=== PATIENT | female | born 1980 | race Caucasian/White ===

== ENCOUNTER → 2016-08-03 | Outpatient (CLI) | payer BC | LOC: MW.CHIM 16:31 | PROVIDERS: ATTEND Internal Medicine | DX: L73.2 Hidradenitis suppurativa (principal) | CPT/HCPCS: 36415; 85025 ==

== ENCOUNTER 2017-04-26 15:33 | Emergency (ER) | payer BC, OTHER ==
[2017-04-26 16:18] VITALS: BP 145/95
[2017-04-26] MEDS ORDERED: Ondansetron 4 MG/2 ML SDV IVPUSH ONE (16:35)
[2017-04-26] MEDS ORDERED: Sodium Chloride 0.9% 1,000 ML IV ONE (16:35)
[2017-04-26] MEDS ORDERED: Ketorolac 30 MG/ML SDV IVPUSH ONE (16:35)
[2017-04-26] MEDS ORDERED: LORazepam 2 MG/ML MDV IVPUSH ONE (16:35)
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
== END 2017-04-26 18:58 | disposition home or self-care (01) ==
LOC: MW.ED 15:33
DX: G43.909 Migraine, unspecified, not intractable, without status migrainosus (principal); I10 Essential (primary) hypertension; F17.210 Nicotine dependence, cigarettes, uncomplicated; Z79.899 Other long term (current) drug therapy
CPT/HCPCS: 96361; 96374; 96375; 99284; J1885; J2060; J7040

== ENCOUNTER 2017-12-14 15:58 | Emergency (ER) | payer OTHER ==
[2017-12-14] MEDS ORDERED: Albuterol/Ipratropium 3.0-0.5 MG/3 ML Neb Soln NEB ONE (16:47)
[2017-12-14] MEDS ORDERED: predniSONE 20 MG Tab PO ONE (16:47)
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
[2017-12-14 17:41] VITALS: BP 121/95
== END 2017-12-14 17:37 | disposition home or self-care (01) ==
LOC: MW.ED 15:58
DX: J45.20 Mild intermittent asthma, uncomplicated (principal); I10 Essential (primary) hypertension; Z79.899 Other long term (current) drug therapy
CPT/HCPCS: 93005; 94640; 99283; A9270; J7620-GY

== ENCOUNTER 2018-10-10 19:55 | Emergency (ER) | payer BC, OTHER ==
[2018-10-10] MEDS ORDERED: LORazepam 1 MG Tab PO ONE (20:21)
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
[2018-10-10 21:22] VITALS: BP 157/105
== END 2018-10-10 21:14 | disposition home or self-care (01) ==
LOC: MW.ED 19:55
DX: F41.1 Generalized anxiety disorder (principal); F17.210 Nicotine dependence, cigarettes, uncomplicated; Z79.899 Other long term (current) drug therapy
CPT/HCPCS: 93005; 99284-25

== ENCOUNTER 2019-11-14 17:45 | Emergency (ER) | payer BC, MEDICAID ==
[2019-11-14] MEDS ORDERED: diphenhydrAMINE 50 MG/ML SDV IVPUSH ONE (19:01)
[2019-11-14] MEDS ORDERED: Ketorolac 30 MG/ML SDV IVPUSH ONE (19:01)
[2019-11-14] MEDS ORDERED: Sodium Chloride 0.9% 1,000 ML IV ONE (19:01)
[2019-11-14] MEDS ORDERED: Metoclopramide 10 MG/2 ML SDV IV ONE (19:01)
[2019-11-14] MEDS ORDERED: Ondansetron 4 MG/2 ML SDV IVPUSH ONE (19:01)
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
[2019-11-14 23:16] VITALS: BP 155/97; PULSE 76
== END 2019-11-14 21:21 | disposition home or self-care (01) ==
LOC: MW.ED 17:45
DX: G43.909 Migraine, unspecified, not intractable, without status migrainosus (principal); R11.2 Nausea with vomiting, unspecified; I10 Essential (primary) hypertension; Z79.899 Other long term (current) drug therapy
CPT/HCPCS: 96361; 96374; 96375; 99283; J1885; J2405; J7030; 99282

== ENCOUNTER 2020-03-26 01:44 | Emergency (ER) | payer MEDICAID ==
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
[2020-03-26] MEDS ORDERED: Benzocaine 20% Topical Spray UD MUCMEM ONE ×2 (02:40→02:56)
[2020-03-26] MEDS ORDERED: Acetaminophen/oxyCODONE 325-5 MG Tab PO ONE (02:40)
[2020-03-26 03:12] VITALS: BP 152/100; PULSE 92
== END 2020-03-26 03:11 | disposition home or self-care (01) ==
LOC: MW.ED 01:44
DX: K08.89 Other specified disorders of teeth and supporting structures (principal); I10 Essential (primary) hypertension; Z88.8 Allergy status to other drugs, medicaments and biological substances; Z79.899 Other long term (current) drug therapy
CPT/HCPCS: 99282; A9270

== ENCOUNTER 2020-03-26 16:41 | Emergency (ER) | payer MEDICAID ==
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
[2020-03-26] MEDS ORDERED: Ketorolac 60 MG/2 ML SDV IM ONE (17:21)
[2020-03-26] MEDS ORDERED: Lidocaine 2% Viscous Solution 15 ML Cup PO ONE (17:22)
[2020-03-26] MEDS ORDERED: Benzocaine 20% Topical Spray UD MUCMEM ONE (17:22)
[2020-03-26] MEDS ORDERED: Lidocaine 2% Viscous Solution 15 ML Cup ONE (17:24)
[2020-03-26] MEDS ORDERED: Benzocaine 20% Topical Spray UD ONE (17:24)
[2020-03-26 17:38] VITALS: BP 180/98; PULSE 89
== END 2020-03-26 17:48 | disposition home or self-care (01) ==
LOC: MW.ED 16:41
DX: K04.7 Periapical abscess without sinus (principal); I10 Essential (primary) hypertension; Z88.8 Allergy status to other drugs, medicaments and biological substances; Z79.899 Other long term (current) drug therapy
CPT/HCPCS: 99282; A9270

== ENCOUNTER 2020-12-10 09:14 | Day surgery (SDC) | payer OTHER, MEDICAID ==
[2020-12-08 12:17] LABS: CARBON DIOXIDE,CO2 28.5 mmol/L (21.0-32.0); POTASSIUM,K 4.6 mmol/L (3.5-5.1)
[~2020-12-10 09:14] MED LIST: Lactated Ringers 1,000 ML IV SCH; Sodium Chloride 0.9% 10 ML SDV IV PRN; Sodium Chloride 0.9% 10 ML Syringe FLUSH PRN; Sodium Chloride 0.9% 2.5 ML Syringe FLUSH PRN; ceFAZolin 2 GM in Premix Bag 1 BAG IV ONE
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
[2020-12-10] MEDS ORDERED: Fluorescein 5 ML Vial ONE (09:44)
[2020-12-10] MEDS ORDERED: Propofol 200 MG/20 ML SDV ONE (10:01)
[2020-12-10] MEDS ORDERED: fentaNYL 100 MCG/2 ML SDV ONE (10:01)
[2020-12-10] MEDS ORDERED: fentaNYL 250 MCG/5 ML SDV ONE ×2 (10:01→10:43)
[2020-12-10] MEDS ORDERED: Rocuronium Bromide 50 MG/5 ML Syringe ONE (11:05)
[2020-12-10] MEDS ORDERED: Glycopyrrolate 0.2 MG/ML SDV ONE (11:05)
[2020-12-10] MEDS ORDERED: ePHEDrine 50 MG/ML SDV ONE (11:05)
[2020-12-10] MEDS ORDERED: Ondansetron 4 MG/2 ML SDV ONE (11:05)
[2020-12-10] MEDS ORDERED: Dexamethasone 4 MG/ML 5 ML MDV ONE (11:05)
[2020-12-10] MEDS ORDERED: Metoprolol Tartrate 5 MG/5 ML SDV ONE (11:05)
[2020-12-10] MEDS ORDERED: Promethazine 25 MG/ML SDV IM PRN (11:30)
[2020-12-10] MEDS ORDERED: Ketorolac 30 MG/ML SDV IVPUSH PRN (11:30)
[2020-12-10] MEDS ORDERED: Ketorolac 30 MG/ML SDV IVPUSH ONE (11:30)
[2020-12-10] MEDS ORDERED: Morphine 4 MG/ML Syringe IVPUSH PRN (11:30)
[2020-12-10] MEDS ORDERED: Acetaminophen/oxyCODONE 325-5 MG Tab PO PRN ×2 (11:30)
[2020-12-10] MEDS ORDERED: Ondansetron 4 MG/2 ML SDV IVPUSH PRN ×2 (11:30→11:54)
--- NOTE | 2020-12-10 11:33 | PCM.OPNOTE ---
- General Post-Op/Procedure Note Date of Surgery/Procedure: 12/10/20 Operative Procedure(s): TVH, TVT and cystoscopy. Post-Op Diagnosis: Same Anesthesia Technique: General ET Tube Primary Surgeon: Dale Gamez EBL in mLs: 150 Complications: None Condition: Good
--- NOTE | 2020-12-10 11:52 | PCM.POSTAN ---
POST ANESTHESIA ASSESSMENT - MENTAL STATUS Mental Status: Alert - VITAL SIGNS Vital Signs: Last Vital Signs Temp 36.2 C 12/10/20 09:22 Pulse 105 H 12/10/20 11:48 Resp 10 L 12/10/20 11:48 BP 151/101 H 12/10/20 11:48 Pulse Ox 100 12/10/20 11:48 - RESPIRATORY Respiratory Status: Respiratory Rate WNL, Airway Patent, O2 Saturation Stable, Supplemental Oxygen - CARDIOVASCULAR CV Status: Pulse Rate WNL - GASTROINTESTINAL GI Status: No Symptoms - POST OP HYDRATION Hydration Status: Adequate & Stable (Patient denies pain or nausea. will monitor NIBP and treat HTN if persists post emergence.)
[2020-12-10] MEDS ORDERED: Naloxone 0.4 MG/ML Syringe IVPUSH PRN (11:54)
[2020-12-10] MEDS ORDERED: Albuterol 0.083% 2.5 MG/3 ML Neb Soln NEB PRN (11:54)
[2020-12-10] MEDS ORDERED: Metoclopramide 10 MG/2 ML SDV IVPUSH PRN (11:54)
[2020-12-10] MEDS ORDERED: Morphine 2 MG/ML SYRINGE IVPUSH PRN (11:54)
[2020-12-10] MEDS ORDERED: HYDROmorphone 1 MG/ML Syringe IVPUSH PRN (11:54)
[2020-12-10] MEDS: fentaNYL 100 MCG/2 ML SDV IVPUSH PRN ×2 (12:02→12:07)
[2020-12-10] MEDS ORDERED: Labetalol 100 MG/20 ML MDV ONE (12:32)
[2020-12-10] MEDS: Labetalol 100 MG/20 ML MDV IVPUSH PRN ×2 (12:35→12:45)
--- NOTE | 2020-12-10 13:04 | PCM48HPAN ---
Post Anesthesia Note - EVALUATION WITHIN 48HRS OF ANESTHETIC Vital Signs in Normal Range: Yes (BP within 20% of baseline) Patient Participated in Evaluation: Yes Respiratory Function Stable: Yes Airway Patent: Yes Cardiovascular Function Stable: Yes Hydration Status Stable: Yes Pain Control Satisfactory: Yes Nausea and Vomiting Control Satisfactory: Yes Mental Status Recovered: Yes Vital Signs: Last Vital Signs Temp 36.2 C 12/10/20 09:22 Pulse 85 12/10/20 12:58 Resp 8 L 12/10/20 12:58 BP 145/97 H 12/10/20 12:58 Pulse Ox 93 L 12/10/20 12:58 - COMMENTS/OBSERVATIONS Free Text/Narrative:: pt transported to floor by [employer]
--- NOTE | 2020-12-10 13:59 | OR ---
SURGEON: Dale Gamez MD DATE OF PROCEDURE: 12/10/2020 PREOPERATIVE DIAGNOSES: 1. Menometrorrhagia. 2. Stress incontinence. POSTOPERATIVE DIAGNOSES: 1. Menometrorrhagia. 2. Stress incontinence. OPERATIONS PERFORMED: Total vaginal hysterectomy, vaginal bilateral salpingectomy preserving both ovary, and Solyx TVT with cystoscopy. PRIMARY SURGEON: Dale Gamez MD LAUNDRY OPERATOR: OR tech. ANESTHESIA: General endotracheal intubation. ESTIMATED BLOOD LOSS: 150 mL. COMPLICATIONS: None. FINDINGS: Uterus 8 weeks size, abnormal urethrovesical angle. INDICATIONS FOR SURGERY: Please refer to the admit note. PROCEDURE IN DETAIL: The patient was brought to the OR, properly identified, and prepped and draped in sterile fashion as usual. A short weighted placed in the vagina, and straight catheter was used to empty the bladder. Then, using the electrocautery, circular incision in the vaginal mucosa around the cervix was done. The posterior cul-de-sac was entered posteriorly, and the vagina and the peritoneum tacked posteriorly with 2-0 Vicryl pop-off. The short weighted speculum replaced with a long weighted speculum. The uterosacral ligament from both sides identified and clamped with a curved Zeppelin, transected and suture ligated with 2-0 Vicryl pop-off. The same thing was done with the cardinal ligament, and then the cervicovesical space was entered anteriorly. The bladder retracted completely away from the operative field. Then, the anterior cul-de- sac was entered anteriorly. The broad ligament was clamped with a curved Zeppelin from both sides, transected, suture ligated with 2-0 Vicryl pop-off, and uterine vessel was suture ligated at this step. Next, the round ligament was clamped with a curved Zeppelin, transected, and suture ligated with 2-0 Vicryl from both sides. The uterus was delivered posteriorly, and the superior pedicle was clamped with 90-degree Zeppelin. The tubes included with the specimen, and the ovaries were preserved, and then the superior pedicle was tied with 2-0 Vicryl free tie twice from both sides. Inspection of the operative field showed no oozing, no bleeding. Then, we proceeded to close the vaginal cuff with 2-0 Vicryl interrupted [id number] sutures. Next, attention was paid to the anterior vaginal wall, and an inch and a half beneath the urethra was infiltrated with copious amount of normal saline and opened in midline with electrocautery, and the vaginal wall dissected laterally in a tunneling fashion creating a tunnel for the Solyx TVT. Then, the Solyx TVT placed into place with a due amount of tension to elevate the urethrovesical angle. Once this was done, we asked the Anesthesia personnel to give the patient fluorescein, and we proceeded to close the vaginal cuff, the incision in the anterior vaginal wall with 2-0 Vicryl continuous interlocking. After that, cystoscopy was performed. Bladder was intact. Both ureteric orifice was seen with dye coming from both of them. Thus, the patency of both ureters verified. Satisfied with this finding, the procedure was ended. Instrument and sponge count were correct. The patient tolerated the procedure well, went to recovery room in stable general condition. LEO / KIM /[id number]
[2020-12-11 06:24] LABS: CARBON DIOXIDE,CO2 24.3 mmol/L (21.0-32.0); POTASSIUM,K 5.3 mmol/L (3.5-5.1)
--- NOTE | 2020-12-11 08:55 | PCM.SURGPN ---
- General Info Date of Service: 12/11/20 POD#: 1 Functional Status: Reports: Pain Controlled - Review of Systems General: Reports: No Symptoms HEENT: Reports: No Symptoms Pulmonary: Reports: No Symptoms Cardiovascular: Reports: No Symptoms Gastrointestinal: Reports: No Symptoms Genitourinary: Reports: No Symptoms Musculoskeletal: Reports: No Symptoms Skin: Reports: No Symptoms Neurological: Reports: No Symptoms Psychiatric: Reports: No Symptoms - Patient Data Vitals - Most Recent: Last Vital Signs Temp 37.0 C 12/11/20 04:09 Pulse 82 12/11/20 04:09 Resp 18 12/11/20 04:09 BP 143/85 H 12/11/20 04:09 Pulse Ox 95 12/11/20 04:09 Weight - Most Recent: 70.76 kg I&O - Last 24 Hours: Intake & Output 12/10/20 12/11/20 12/11/20 22:59 06:59 14:59 Intake Total 550 750 Output Total 150 5 Balance 400 745 Lab Results Last 24 Hrs: Laboratory Results - last 24 hr 12/11/20 12/11/20 Range/Units 04:55 04:55 WBC 16.92 H (4.0-11.0) K/uL RBC 3.50 L (4.30-5.90) M/uL Hgb 11.3 L (12.0-16.0) g/dL Hct 32.5 L (36.0-46.0) % MCV 92.9 (80.0-98.0) fL MCH 32.3 H (27.0-32.0) pg MCHC 34.8 (31.0-37.0) g/dL RDW Std Deviation 44.6 (28.0-62.0) fl RDW Coeff of Patricia 13 (11.0-15.0) % Plt Count 267 (150-400) K/uL MPV 10.10 (7.40-12.00) fL Neut % (Auto) 79.0 (48.0-80.0) % Lymph % (Auto) 14.1 L (16.0-40.0) % Howell % (Auto) 6.7 (0.0-15.0) % Eos % (Auto) 0.1 (0.0-7.0) % Baso % (Auto) 0.1 (0.0-1.5) % Neut # (Auto) 13.4 H (1.4-5.7) K/uL Lymph # (Auto) 2.4 (0.6-2.4) K/uL Howell # (Auto) 1.1 H (0.0-0.8) K/uL Eos # (Auto) 0.0 (0.0-0.7) K/uL Baso # (Auto) 0.0 (0.0-0.1) K/uL Nucleated RBC % 0.0 /100WBC Nucleated RBCs # 0 K/uL Sodium 133 L (136-145) mmol/L Potassium 5.3 H (3.5-5.1) mmol/L Chloride 101 (98-107) mmol/L Carbon Dioxide 24.3 (21.0-32.0) mmol/L BUN 12 (7.0-18.0) mg/dL Creatinine 1.1 H (0.6-1.0) mg/dL Est Cr Clr Drug Dosing 58.12 mL/min Estimated GFR (MDRD) 54.7 ml/min Glucose 88 (74-106) mg/dL Calcium 8.2 L (8.5-10.1) mg/dL Med Orders - Current: Current Medications Lactated Ringer's (Ringers, Lactated) 1,000 mls @ 125 mls/hr IV ASDIRECTED [facility] Last Admin: 12/10/20 09:38 Dose: 125 mls/hr Documented by: Ketorolac Tromethamine (Ketorolac 30 Mg/Ml Sdv) 30 mg IVPUSH Q6H PRN PRN Reason: Pain (severe 7-10) Stop: 12/15/20 11:30 Morphine Sulfate (Morphine 4 Mg/Ml Syringe) 4 mg IVPUSH Q2H PRN PRN Reason: Pain (severe 7-10) Ondansetron HCl (Ondansetron 4 Mg/2 Ml Sdv) 4 mg IVPUSH Q6H PRN PRN Reason: Nausea/Vomiting Last Admin: 12/10/20 21:27 Dose: 4 mg Documented by: Oxycodone/Acetaminophen (Acetaminophen/Oxycodone 325-5 Mg Tab) 1 tab PO Q4H PRN PRN Reason: Pain (moderate 4-6) Last Admin: 12/11/20 00:05 Dose: 1 tab Documented by: Oxycodone/Acetaminophen (Acetaminophen/Oxycodone 325-5 Mg Tab) 2 tab PO Q4H PRN PRN Reason: Pain (moderate 4-6) Promethazine HCl (Promethazine 25 Mg/Ml Sdv) 25 mg IM Q6H PRN PRN Reason: Nausea/Vomiting Last Admin: 12/10/20 12:16 Dose: 25 mg Documented by: Sodium Chloride (Sodium Chloride 0.9% 10 Ml Syringe) 10 ml FLUSH ASDIRECTED PRN PRN Reason: Keep Vein Open Sodium Chloride (Sodium Chloride 0.9% 2.5 Ml Syringe) 2.5 ml FLUSH ASDIRECTED PRN PRN Reason: Keep Vein Open Sodium Chloride (Sodium Chloride 0.9% 10 Ml Sdv) 10 ml IV ASDIRECTED PRN PRN Reason: IV Use Discontinued Medications Albuterol (Albuterol 0.083% 2.5 Mg/3 Ml Neb Soln) 2.5 mg NEB ONETIME PRN PRN Reason: Wheezing Dexamethasone (Dexamethasone 4 Mg/Ml 5 Ml Mdv) Confirm Administered Dose 20 mg .ROUTE .STK-MED ONE Stop: 12/10/20 11:06 Droperidol (Droperidol 5 Mg/2 Ml Sdv) 0.625 mg IVPUSH ONETIME PRN PRN Reason: Nausea/Vomiting Ephedrine Sulfate (Ephedrine 50 Mg/Ml Sdv) Confirm Administered Dose 50 mg .ROUT E .STK-MED ONE Stop: 12/10/20 11:06 Fentanyl (Fentanyl 100 Mcg/2 Ml Sdv) Confirm Administered Dose 100 mcg .ROUTE .STK-MED ONE Stop: 12/10/20 10:02 Fentanyl (Fentanyl 250 Mcg/5 Ml Sdv) Confirm Administered Dose 250 mcg .ROUTE .STK-MED ONE Stop: 12/10/20 10:02 Fentanyl (Fentanyl 250 Mcg/5 Ml Sdv) Confirm Administered Dose 250 mcg .ROUTE .STK-MED ONE Stop: 12/10/20 10:44 Fentanyl (Fentanyl 100 Mcg/2 Ml Sdv) 50 mcg IVPUSH Q5M PRN PRN Reason: Pain (mild 1-3) Last Admin: 12/10/20 12:07 Dose: 50 mcg Documented by: Fluorescein Sodium (Fluorescein 5 Ml Vial) Confirm Administered Dose 5 ml .ROUTE .STK-MED ONE Stop: 12/10/20 09:45 Glycopyrrolate (Glycopyrrolate 0.2 Mg/Ml Sdv) Confirm Administered Dose 0.4 mg .ROUTE .ST-MED ONE Stop: 12/10/20 11:06 Hydromorphone HCl (Hydromorphone 1 Mg/Ml Syringe) 1 mg IVPUSH Q10M PRN PRN Reason: Pain (moderate 4-6) Last Admin: 12/10/20 12:12 Dose: 1 mg Documented by: Cefazolin Sodium/Dextrose 2 gm (/ Premix) 50 mls @ 100 mls/hr IV ONETIME ONE Stop: 12/08/20 10:43 Cefazolin Sodium/Dextrose (Ancef 1 Gm/50 Ml) Confirm Administered Dose 100 mls @ as directed .ROUTE .[facility]-MED ONE Stop: 12/10/20 11:06 Acetaminophen (Ofirmev 1000 Mg/100 Ml) Confirm Administered Dose 100 mls @ as directed .ROUTE .[facility]-MED ONE Stop: 12/10/20 11:06 Ketorolac Tromethamine (Ketorolac 30 Mg/Ml Sdv) 30 mg IVPUSH ONETIME ONE Stop: 12/10/20 11:31 Last Admin: 12/10/20 11:51 Dose: 30 mg Documented by: Labetalol HCl (Labetalol 100 Mg/20 Ml Mdv) 5 mg IVPUSH .BOLUS PRN; Protocol PRN Reason: Hypertension Stop: 12/10/20 13:30 Last Admin: 12/10/20 12:45 Dose: 5 mg Documented by: Labetalol HCl (Labetalol 100 Mg/20 Ml Mdv) Confirm Administered Dose 100 mg .ROUTE .ST-MED ONE Stop: 12/10/20 12:33 Metoclopramide HCl (Metoclopramide 10 Mg/2 Ml Sdv) 10 mg IVPUSH ONETIME PRN PRN Reason: Nausea/Vomiting Metoprolol Tartrate (Metoprolol Tartrate 5 Mg/5 Ml Sdv) Confirm Administered Dose 5 mg .ROUTE .STK-MED ONE Stop: 12/10/20 11:06 Morphine Sulfate (Morphine 2 Mg/Ml Syringe) 2 mg IVPUSH Q10M PRN PRN Reason: Pain (severe 7-10) Naloxone HCl (Naloxone 0.4 Mg/Ml Syringe) 0.1 mg IVPUSH ASDIRECTED PRN PRN Reason: Respiratory Depression Ondansetron HCl (Ondansetron 4 Mg/2 Ml Sdv) Confirm Administered Dose 4 mg .ROUTE .STK-MED ONE Stop: 12/10/20 11:06 Ondansetron HCl (Ondansetron 4 Mg/2 Ml Sdv) 4 mg IVPUSH ONETIME PRN PRN Reason: Nausea/Vomiting Propofol (Propofol 200 Mg/20 Ml Sdv) Confirm Administered Dose 200 mg .ROUTE .STK-MED ONE Stop: 12/10/20 10:02 Rocuronium [place] (Rocuronium [place] 50 Mg/5 Ml Syringe) Confirm Administered Dose 50 mg .ROUTE .STK-MED ONE Stop: 12/10/20 11:06 - Exam Wound/Incisions: Healing Well General: Alert, Oriented HEENT: Pupils Equal Neck: Supple Lungs: Clear to Auscultation, Normal Respiratory Effort Cardiovascular: Regular Rate, Regular Rhythm GI/Abdominal Exam: Normal Bowel Sounds, Soft, Non-Tender, No Organomegaly, No Distention, No Abnormal Bruit, No Mass, Pelvis Stable Extremities: Normal Inspection, Normal Range of Motion, Non-Tender, No Pedal Edema, Normal Capillary Refill Skin: Warm, Dry, Intact Neurological: No New Focal Deficit Psy/Mental Status: Alert, Normal Affect, Normal Mood Sepsis Event Note - Evaluation Sepsis Screening Result: No Definite Risk - Focused Exam Vital Signs: Vital Signs Temp Pulse Resp BP Pulse Ox 12/11/20 04:09 37.0 C 82 18 143/85 H 95 12/10/20 23:59 36.8 C 85 18 136/90 95 - Problem List Review Problem List Initiated/Reviewed/Updated: Yes - My Orders Last 24 Hours: Active Orders 24 hr Category Date Time Status Patient Status [ADT] Routine ADT 12/10/20 11:30 Active Antiembolic Devices [RC] PER UNIT ROUTINE Care 12/10/20 11:30 Active Notify Provider Vital Signs [RC] ASDIRECTED Care 12/10/20 11:30 Active Overnight Pulse Oximetry [RC] Click to Edit Care 12/10/20 11:55 Active Oxygen Therapy [RC] ASDIRECTED Care 12/10/20 11:30 Active RT Aerosol Therapy [RC] ASDIRECTED Care 12/10/20 11:55 Active RT Incentive Spirometry [RC] Q2HWA Care 12/10/20 11:30 Active Up With Assistance [RC] PER UNIT ROUTINE Care 12/10/20 11:30 Active Up ad Jennifer [RC] PER UNIT ROUTINE Care 12/10/20 11:30 Active Urinary Catheter Removal [RC] Per Unit Routine Care 12/10/20 11:30 Active Regular Diet [DIET] Diet 12/10/20 Dinner Active Acetaminophen/oxyCODONE [Percocet 325-5 MG] Med 12/10/20 11:30 Active 1 tab PO Q4H PRN Acetaminophen/oxyCODONE [Percocet 325-5 MG] Med 12/10/20 11:30 Active 2 tab PO Q4H PRN Ketorolac [Toradol] Med 12/10/20 11:30 Active 30 mg IVPUSH Q6H PRN Morphine Med 12/10/20 11:30 Active 4 mg IVPUSH Q2H PRN Ondansetron [Zofran] Med 12/10/20 11:30 Active 4 mg IVPUSH Q6H PRN Promethazine [Phenergan] Med 12/10/20 11:30 Active 25 mg IM Q6H PRN Antihypertensive Medications Reflex [OM.PC] Click to Oth 12/10/20 12:26 Ordered Edit Peripheral IV Discontinue [OM.PC] Routine Oth 12/10/20 11:30 Ordered Pulse Oximetry Continuous Monitoring [OM.PC] Routine Oth 12/10/20 11:55 Ordered Sequential Compression Device [OM.PC] Per Unit Routine Oth 12/10/20 11:30 Ordered Resuscitation Status Routine Resus Stat 12/10/20 11:30 Ordered Medication Orders Lactated Ringer's (Ringers, Lactated) 1,000 mls @ 125 mls/hr IV ASDIRECTED MATTHEW Last Admin: 12/10/20 09:38 Dose: 125 mls/hr Documented by: [facility] Ketorolac Tromethamine (Ketorolac 30 Mg/Ml Sdv) 30 mg IVPUSH Q6H PRN PRN Reason: Pain (severe 7-10) Stop: 12/15/20 11:30 Morphine Sulfate (Morphine 4 Mg/Ml Syringe) 4 mg IVPUSH Q2H PRN PRN Reason: Pain (severe 7-10) Ondansetron HCl (Ondansetron 4 Mg/2 Ml Sdv) 4 mg IVPUSH Q6H PRN PRN Reason: Nausea/Vomiting Last Admin: 12/10/20 21:27 Dose: 4 mg Documented by: TIFFANIE Oxycodone/Acetaminophen (Acetaminophen/Oxycodone 325-5 Mg Tab) 1 tab PO Q4H PRN PRN Reason: Pain (moderate 4-6) Last Admin: 12/11/20 00:05 Dose: 1 tab Documented by: TIFFANIE Oxycodone/Acetaminophen (Acetaminophen/Oxycodone 325-5 Mg Tab) 2 tab PO Q4H PRN PRN Reason: Pain (moderate 4-6) Promethazine HCl (Promethazine 25 Mg/Ml Sdv) 25 mg IM Q6H PRN PRN Reason: Nausea/Vomiting Last Admin: 12/10/20 12:16 Dose: 25 mg Documented by: VIVIANA Sodium Chloride (Sodium Chloride 0.9% 10 Ml Syringe) 10 ml FLUSH ASDIRECTED PRN PRN Reason: Keep Vein Open Sodium Chloride (Sodium Chloride 0.9% 2.5 Ml Syringe) 2.5 ml FLUSH ASDIRECTED PRN PRN Reason: Keep Vein Open Sodium Chloride (Sodium Chloride 0.9% 10 Ml Sdv) 10 ml IV ASDIRECTED PRN PRN Reason: IV Use - Assessment Assessment (Free Text/Narrative):: Status post TVH TVT postoperative day #1 the patient is doing well no vaginal bleeding on regular diet she is voiding without any problem and her pain is under control. - Plan Plan (Free Text/Narrative):: Patient will be discharged home today the post hysterectomy instruction is given to her and she was given a prescription of [place] 5/325 for postoperative pain the patient already have an appointment to come see me in one week.
[2020-12-11 09:52] VITALS: BP 134/96; PULSE 86
== END 2020-12-11 10:15 | disposition home or self-care (01) ==
LOC: MW.SDS 09:14 → MW.MS 10:30 → MW.SDS 12-11 10:15
PROVIDERS: ATTEND Obstetrics & Gynecology
DX: N92.1 Excessive and frequent menstruation with irregular cycle (principal); N39.46 Mixed incontinence; Z79.899 Other long term (current) drug therapy; E78.5 Hyperlipidemia, unspecified; G43.909 Migraine, unspecified, not intractable, without status migrainosus; Z88.8 Allergy status to other drugs, medicaments and biological substances; I10 Essential (primary) hypertension; E78.00 Pure hypercholesterolemia, unspecified; F17.210 Nicotine dependence, cigarettes, uncomplicated; Z20.822 Contact with and (suspected) exposure to COVID-19
CPT/HCPCS: 36415; 57288; 58262; 80048; 84703; 85025; 85027; 86850; 86900; 86901; 88307; A9270; J0131; J0690; J1100; J1170; J1885; J2405; J2550; J2704; J3010; J3490; J7030; J7120; 00944

== ENCOUNTER 2020-12-28 15:38 | Observation (INO) | payer OTHER, MEDICAID ==
[2020-12-28 16:27] LABS: BLOOD UREA NITROGEN,BUN 10 mg/dL (7.0-18.0); CARBON DIOXIDE,CO2 27.1 mmol/L (21.0-32.0); CHLORIDE,CL 102 mmol/L (98-107); GLUCOSE RANDOM 105 mg/dL (74-106); POTASSIUM,K 4.3 mmol/L (3.5-5.1); SODIUM,NA 137 mmol/L (136-145)
[2020-12-28] MEDS ORDERED: Iopamidol 755 MG/ML 500 ML Multipack Bottle IVPUSH STA (17:13)
--- NOTE | 2020-12-28 18:22 | CT ---
INDICATION: Abdominal pain, status post hysterectomy December 10, 2020 TECHNIQUE: CT abdomen and pelvis acquired with 100 cc Isovue 370 IV contrast. COMPARISON: CT abdomen pelvis October 31, 2016 FINDINGS: Lower chest: Unremarkable. Liver: Unremarkable. Spleen: Unremarkable. Pancreas: Unremarkable. Gallbladder and bile ducts: Unremarkable. Adrenal glands: Unremarkable. Kidneys: Bilateral renal scarring. Nonobstructive left nephrolithiasis. GI tract: Unremarkable. Vascular structures: Mild aortoiliac calcifications. Lymph nodes: Unremarkable. Pelvic Organs: Status post hysterectomy. There are bubbles of air near the vaginal cuff. There is a 5.1 x 6.1 x 3.3 cm fluid and air collection adjacent to the vaginal cuff. There are 2 round hypodense lesions in the left pelvis measuring 3.9 cm and 1.8 cm in diameter. There are generalized inflammatory changes within the lower abdomen with mild bowel wall thickening and mesenteric fat stranding. Bones: Unremarkable for age. IMPRESSION: Pelvic abscess adjacent to the vaginal cuff. There are bubbles of air near the cuff which appear to be within the vagina rather than external to the cuff. There are generalized inflammatory changes in the pelvis. Round fluid collections in the left pelvis may represent separate abscesses or ovarian cysts. Bilateral renal scarring with nonobstructive left nephrolithiasis. Findings discussed with Dr. Cavazos at 6:20 p.m. on December 28, 2020. Please note that all CT scans at this facility use dose modulation, iterative reconstruction, and/or weight-based dosing when appropriate to reduce radiation dose to as low as reasonably achievable. Dictated by Sobeida Glasgow MD @ 12/28/2020 6:00:08 PM (Electronically Signed)
[2020-12-28] MEDS ORDERED: metroNIDAZOLE/Normal Saline 500 MG in Premix Bag 1 BAG IV ONE (18:28)
[2020-12-28] MEDS ORDERED: cefTRIAXone 2 GM in Premix Bag 1 BAG IV ONE (18:29)
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
[2020-12-28] MEDS ORDERED: Morphine 4 MG/ML Syringe IVPUSH PRN (21:12)
[2020-12-28] MEDS ORDERED: Lactated Ringers 1,000 ML IV ONE (21:15)
[2020-12-28] MEDS: Nicotine 14 MG/24 Hr Patch TRDERM SCH (22:15)
[2020-12-29] MEDS: metroNIDAZOLE/Normal Saline 500 MG in Premix Bag 1 BAG IV SCH ×3 (02:00→18:25)
[2020-12-29] MEDS: Acetaminophen 500 MG Tab PO PRN (07:57)
[2020-12-29] MEDS: Nicotine 14 MG/24 Hr Patch TRDERM SCH (09:07)
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
--- NOTE | 2020-12-29 09:10 | PCM.PN ---
- General Info Date of Service: 12/29/20 Functional Status: Reports: Pain Controlled - Review of Systems General: Reports: No Symptoms HEENT: Reports: No Symptoms Pulmonary: Reports: No Symptoms Cardiovascular: Reports: No Symptoms Gastrointestinal: Reports: No Symptoms Genitourinary: Reports: No Symptoms Musculoskeletal: Reports: No Symptoms Skin: Reports: No Symptoms Neurological: Reports: No Symptoms Psychiatric: Reports: No Symptoms - Patient Data Vitals - Most Recent: Last Vital Signs Temp 35.8 C L 12/29/20 08:00 Pulse 94 12/29/20 08:00 Resp 16 12/29/20 08:00 BP 124/91 H 12/29/20 08:00 Pulse Ox 99 12/29/20 08:00 Weight - Most Recent: 68.4 kg I&O - Last 24 Hours: Intake & Output 12/28/20 12/29/20 12/29/20 22:59 06:59 14:59 Intake Total 450 Output Total 500 Balance -50 Lab Results Last 24 Hours: Laboratory Results - last 24 hr 12/28/20 12/28/20 12/28/20 Range/Units 15:54 15:54 15:54 WBC 9.63 (4.0-11.0) K/uL RBC 3.55 L (4.30-5.90) M/uL Hgb 10.9 L (12.0-16.0) g/dL Hct 33.0 L (36.0-46.0) % MCV 93.0 (80.0-98.0) fL MCH 30.7 (27.0-32.0) pg MCHC 33.0 (31.0-37.0) g/dL RDW Std Deviation 45.5 (28.0-62.0) fl RDW Coeff of Patricia 13 (11.0-15.0) % Plt Count 437 H (150-400) K/uL MPV 8.80 (7.40-12.00) fL Neut % (Auto) 74.0 (48.0-80.0) % Lymph % (Auto) 18.7 (16.0-40.0) % Bucks % (Auto) 4.5 (0.0-15.0) % Eos % (Auto) 2.6 (0.0-7.0) % Baso % (Auto) 0.2 (0.0-1.5) % Neut # (Auto) 7.1 H (1.4-5.7) K/uL Lymph # (Auto) 1.8 (0.6-2.4) K/uL Bucks # (Auto) 0.4 (0.0-0.8) K/uL Eos # (Auto) 0.3 (0.0-0.7) K/uL Baso # (Auto) 0.0 (0.0-0.1) K/uL Nucleated RBC % 0.0 /100WBC Nucleated RBCs # 0 K/uL INR 0.93 APTT 27.8 (18.6-31.3) SEC Sodium 137 (136-145) mmol/L Potassium 4.3 (3.5-5.1) mmol/L Chloride 102 (98-107) mmol/L Carbon Dioxide 27.1 (21.0-32.0) mmol/L BUN 10 (7.0-18.0) mg/dL Creatinine 1.0 (0.6-1.0) mg/dL Est Cr Clr Drug Dosing 63.93 mL/min Estimated GFR (MDRD) > 60.0 ml/min Glucose 105 (74-106) mg/dL Lactic Acid (0.4-2.0) mmol/L Calcium 9.3 (8.5-10.1) mg/dL Total Bilirubin 0.3 (0.2-1.0) mg/dL AST 38 H (15-37) IU/L ALT 67 H (14-63) IU/L Alkaline Phosphatase 168 H (46-116) U/L Total Protein 7.4 (6.4-8.2) g/dL Albumin 2.9 L (3.4-5.0) g/dL Globulin 4.5 H (2.6-4.0) g/dL Albumin/Globulin Ratio 0.6 L (0.9-1.6) Urine Color Urine Appearance Urine pH (5.0-8.0) Ur Specific [place] (1.001-1.035) Urine Protein (NEGATIVE) mg/dL Urine Glucose (UA) (NEGATIVE) mg/dL Urine Ketones (NEGATIVE) mg/dL Urine Occult Blood (NEGATIVE) Urine Nitrite (NEGATIVE) Urine Bilirubin (NEGATIVE) Urine Urobilinogen (<2.0) EU/dL Ur Leukocyte Esterase (NEGATIVE) Urine RBC (0-2/HPF) Urine WBC (0-5/HPF) Ur Epithelial Cells (NONE-FEW) Urine Bacteria (NEGATIVE) SARS-CoV-2 RNA ([facility]) (NEGATIVE) 12/28/20 12/28/20 12/28/20 Range/Units 16:05 18:43 18:49 WBC (4.0-11.0) K/uL RBC (4.30-5.90) M/uL Hgb (12.0-16.0) g/dL Hct (36.0-46.0) % MCV (80.0-98.0) fL MCH (27.0-32.0) pg MCHC (31.0-37.0) g/dL RDW Std Deviation (28.0-62.0) fl RDW Coeff of Patricia (11.0-15.0) % Plt Count (150-400) K/uL MPV (7.40-12.00) fL Neut % (Auto) (48.0-80.0) % Lymph % (Auto) (16.0-40.0) % Bucks % (Auto) (0.0-15.0) % Eos % (Auto) (0.0-7.0) % Baso % (Auto) (0.0-1.5) % Neut # (Auto) (1.4-5.7) K/uL Lymph # (Auto) (0.6-2.4) K/uL Bucks # (Auto) (0.0-0.8) K/uL Eos # (Auto) (0.0-0.7) K/uL Baso # (Auto) (0.0-0.1) K/uL Nucleated RBC % /100WBC Nucleated RBCs # K/uL INR APTT (18.6-31.3) SEC Sodium (136-145) mmol/L Potassium (3.5-5.1) mmol/L Chloride (98-107) mmol/L Carbon Dioxide (21.0-32.0) mmol/L BUN (7.0-18.0) mg/dL Creatinine (0.6-1.0) mg/dL Est Cr Clr Drug Dosing mL/min Estimated GFR (MDRD) ml/min Glucose (74-106) mg/dL Lactic Acid 1.1 (0.4-2.0) mmol/L Calcium (8.5-10.1) mg/dL Total Bilirubin (0.2-1.0) mg/dL AST (15-37) IU/L ALT (14-63) IU/L Alkaline Phosphatase (46-116) U/L Total Protein (6.4-8.2) g/dL Albumin (3.4-5.0) g/dL Globulin (2.6-4.0) g/dL Albumin/Globulin Ratio (0.9-1.6) Urine Color YELLOW Urine Appearance HAZY Urine pH 7.0 (5.0-8.0) Ur Specific [place] 1.020 (1.001-1.035) Urine Protein TRACE H (NEGATIVE) mg/dL Urine Glucose (UA) NEGATIVE (NEGATIVE) mg/dL Urine Ketones NEGATIVE (NEGATIVE) mg/dL Urine Occult Blood LARGE H (NEGATIVE) Urine Nitrite NEGATIVE (NEGATIVE) Urine Bilirubin NEGATIVE (NEGATIVE) Urine Urobilinogen 0.2 (<2.0) EU/dL Ur Leukocyte Esterase MODERATE H (NEGATIVE) Urine RBC 0-3 (0-2/HPF) Urine WBC 1-5 (0-5/HPF) Ur Epithelial Cells RARE (NONE-FEW) Urine Bacteria FEW (NEGATIVE) SARS-CoV-2 RNA ([facility]) NEGATIVE (NEGATIVE) 12/29/20 12/29/20 Range/Units 06:00 06:00 WBC 8.77 (4.0-11.0) K/uL RBC 3.18 L (4.30-5.90) M/uL Hgb 9.8 L (12.0-16.0) g/dL Hct 29.9 L (36.0-46.0) % MCV 94.0 (80.0-98.0) fL MCH 30.8 (27.0-32.0) pg MCHC 32.8 (31.0-37.0) g/dL RDW Std Deviation 47.3 (28.0-62.0) fl RDW Coeff of Patricia 14 (11.0-15.0) % Plt Count 416 H (150-400) K/uL MPV 9.10 (7.40-12.00) fL Neut % (Auto) 63.3 (48.0-80.0) % Lymph % (Auto) 25.0 (16.0-40.0) % Bucks % (Auto) 6.7 (0.0-15.0) % Eos % (Auto) 4.8 (0.0-7.0) % Baso % (Auto) 0.2 (0.0-1.5) % Neut # (Auto) 5.6 (1.4-5.7) K/uL Lymph # (Auto) 2.2 (0.6-2.4) K/uL [place] # (Auto) 0.6 (0.0-0.8) K/uL Eos # (Auto) 0.4 (0.0-0.7) K/uL Baso # (Auto) 0.0 (0.0-0.1) K/uL Nucleated RBC % 0.0 /100WBC Nucleated RBCs # 0 K/uL INR APTT (18.6-31.3) SEC Sodium (136-145) mmol/L Potassium (3.5-5.1) mmol/L Chloride (98-107) mmol/L Carbon Dioxide (21.0-32.0) mmol/L BUN (7.0-18.0) mg/dL Creatinine (0.6-1.0) mg/dL Est Cr Clr Drug Dosing mL/min Estimated GFR (MDRD) ml/min Glucose (74-106) mg/dL Lactic Acid 0.5 (0.4-2.0) mmol/L Calcium (8.5-10.1) mg/dL Total Bilirubin (0.2-1.0) mg/dL AST (15-37) IU/L ALT (14-63) IU/L Alkaline Phosphatase (46-116) U/L Total Protein (6.4-8.2) g/dL Albumin (3.4-5.0) g/dL Globulin (2.6-4.0) g/dL Albumin/Globulin Ratio (0.9-1.6) Urine Color Urine Appearance Urine pH (5.0-8.0) Ur Specific [place] (1.001-1.035) Urine Protein (NEGATIVE) mg/dL Urine Glucose (UA) (NEGATIVE) mg/dL Urine Ketones (NEGATIVE) mg/dL Urine Occult Blood (NEGATIVE) Urine Nitrite (NEGATIVE) Urine Bilirubin (NEGATIVE) Urine Urobilinogen (<2.0) EU/dL Ur Leukocyte Esterase (NEGATIVE) Urine RBC (0-2/HPF) Urine WBC (0-5/HPF) Ur Epithelial Cells (NONE-FEW) Urine Bacteria (NEGATIVE) SARS-CoV-2 RNA ([facility]) (NEGATIVE) Med Orders - Current: Current Medications Acetaminophen (Acetaminophen 500 Mg Tab) 1,000 mg PO Q4H PRN PRN Reason: Headache Last Admin: 12/29/20 07:57 Dose: 1,000 mg Documented by: Metronidazole 500 mg/ Premix 100 mls @ 100 mls/hr IV Q8H [facility] Last Admin: 12/29/20 02:00 Dose: 100 mls/hr Documented by: Ceftriaxone Sodium/Dextrose 1 (gm/ Premix) 50 mls @ 100 mls/hr IV Q24H [facility] Morphine Sulfate (Morphine 4 Mg/Ml Syringe) 4 - 6 mg IVPUSH Q4H PRN PRN Reason: Pain Last Admin: 12/28/20 22:38 Dose: 4 mg Documented by: Nicotine (Nicotine 14 Mg/24 Hr Patch) 14 mg TRDERM DAILY [facility] Last Admin: 12/29/20 09:07 Dose: Not Given Documented by: Discontinued Medications Metronidazole 500 mg/ Premix 100 mls @ 100 mls/hr IV ONETIME ONE Stop: 12/28/20 19:27 Last Admin: 12/28/20 18:52 Dose: 100 mls/hr Documented by: Ceftriaxone Sodium/Dextrose 2 (gm/ Premix) 50 mls @ 100 mls/hr IV ONETIME ONE Stop: 12/28/20 18:58 Last Admin: 12/28/20 18:43 Dose: 100 mls/hr Documented by: Lactated Ringer's (Ringers, Lactated) 1,000 mls @ 250 mls/hr IV ONETIME ONE Stop: 12/29/20 01:14 Last Admin: 12/28/20 22:15 Dose: 250 mls/hr Documented by: Iopamidol (Iopamidol 755 Mg/Ml 500 Ml Multipack Bottle) 100 ml IVPUSH ONETIME STA Stop: 12/28/20 17:14 Last Admin: 12/28/20 17:13 Dose: 100 ml Documented by: - Exam General: Alert, Oriented HEENT: Pupils Equal, Pupils Reactive, EOMI, Mucous Membr. Moist/[place] Neck: Supple Lungs: Clear to Auscultation, Normal Respiratory Effort Cardiovascular: Regular Rate, Regular Rhythm GI/Abdominal Exam: Normal Bowel Sounds, Soft, Non-Tender, No Organomegaly, No Distention, No Abnormal Bruit, No Mass, Pelvis Stable (Female) Exam: Normal External Exam, Normal Speculum Exam, Normal Bimanual Exam Back Exam: Normal Inspection, Full Range of Motion Extremities: Normal Inspection, Normal Range of Motion, Non-Tender, No Pedal Edema, Normal Capillary Refill Skin: Warm, Dry, Intact Wound/Incisions: Healing Well Neurological: No New Focal Deficit Psy/Mental Status: Alert, Normal Affect, Normal Mood - Patient Data Lab Results Last 24 hrs: Laboratory Results - last 24 hr 12/28/20 12/28/20 12/28/20 Range/Units 15:54 15:54 15:54 WBC 9.63 (4.0-11.0) K/uL RBC 3.55 L (4.30-5.90) M/uL Hgb 10.9 L (12.0-16.0) g/dL Hct 33.0 L (36.0-46.0) % MCV 93.0 (80.0-98.0) fL MCH 30.7 (27.0-32.0) pg MCHC 33.0 (31.0-37.0) g/dL RDW Std Deviation 45.5 (28.0-62.0) fl RDW Coeff of Patricia 13 (11.0-15.0) % Plt Count 437 H (150-400) K/uL MPV 8.80 (7.40-12.00) fL Neut % (Auto) 74.0 (48.0-80.0) % Lymph % (Auto) 18.7 (16.0-40.0) % [place] % (Auto) 4.5 (0.0-15.0) % Eos % (Auto) 2.6 (0.0-7.0) % Baso % (Auto) 0.2 (0.0-1.5) % Neut # (Auto) 7.1 H (1.4-5.7) K/uL Lymph # (Auto) 1.8 (0.6-2.4) K/uL Bucks # (Auto) 0.4 (0.0-0.8) K/uL Eos # (Auto) 0.3 (0.0-0.7) K/uL Baso # (Auto) 0.0 (0.0-0.1) K/uL Nucleated RBC % 0.0 /100WBC Nucleated RBCs # 0 K/uL INR 0.93 APTT 27.8 (18.6-31.3) SEC Sodium 137 (136-145) mmol/L Potassium 4.3 (3.5-5.1) mmol/L Chloride 102 (98-107) mmol/L Carbon Dioxide 27.1 (21.0-32.0) mmol/L BUN 10 (7.0-18.0) mg/dL Creatinine 1.0 (0.6-1.0) mg/dL Est Cr Clr Drug Dosing 63.93 mL/min Estimated GFR (MDRD) > 60.0 ml/min Glucose 105 (74-106) mg/dL Lactic Acid (0.4-2.0) mmol/L Calcium 9.3 (8.5-10.1) mg/dL Total Bilirubin 0.3 (0.2-1.0) mg/dL AST 38 H (15-37) IU/L ALT 67 H (14-63) IU/L Alkaline Phosphatase 168 H (46-116) U/L Total Protein 7.4 (6.4-8.2) g/dL Albumin 2.9 L (3.4-5.0) g/dL Globulin 4.5 H (2.6-4.0) g/dL Albumin/Globulin Ratio 0.6 L (0.9-1.6) Urine Color Urine Appearance Urine pH (5.0-8.0) Ur Specific [place] (1.001-1.035) Urine Protein (NEGATIVE) mg/dL Urine Glucose (UA) (NEGATIVE) mg/dL Urine Ketones (NEGATIVE) mg/dL Urine Occult Blood (NEGATIVE) Urine Nitrite (NEGATIVE) Urine Bilirubin (NEGATIVE) Urine Urobilinogen (<2.0) EU/dL Ur Leukocyte Esterase (NEGATIVE) Urine RBC (0-2/HPF) Urine WBC (0-5/HPF) Ur Epithelial Cells (NONE-FEW) Urine Bacteria (NEGATIVE) SARS-CoV-2 RNA ([facility]) (NEGATIVE) 12/28/20 12/28/20 12/28/20 Range/Units 16:05 18:43 18:49 WBC (4.0-11.0) K/uL RBC (4.30-5.90) M/uL Hgb (12.0-16.0) g/dL Hct (36.0-46.0) % MCV (80.0-98.0) fL MCH (27.0-32.0) pg MCHC (31.0-37.0) g/dL RDW Std Deviation (28.0-62.0) fl RDW Coeff of Patricia (11.0-15.0) % Plt Count (150-400) K/uL MPV (7.40-12.00) fL Neut % (Auto) (48.0-80.0) % Lymph % (Auto) (16.0-40.0) % [place]ucks % (Auto) (0.0-15.0) % Eos % (Auto) (0.0-7.0) % Baso % (Auto) (0.0-1.5) % Neut # (Auto) (1.4-5.7) K/uL Lymph # (Auto) (0.6-2.4) K/uL Bucks # (Auto) (0.0-0.8) K/uL Eos # (Auto) (0.0-0.7) K/uL Baso # (Auto) (0.0-0.1) K/uL Nucleated RBC % /100WBC Nucleated RBCs # K/uL INR APTT (18.6-31.3) SEC Sodium (136-145) mmol/L Potassium (3.5-5.1) mmol/L Chloride (98-107) mmol/L Carbon Dioxide (21.0-32.0) mmol/L BUN (7.0-18.0) mg/dL Creatinine (0.6-1.0) mg/dL Est Cr Clr Drug Dosing mL/min Estimated GFR (MDRD) ml/min Glucose (74-106) mg/dL Lactic Acid 1.1 (0.4-2.0) mmol/L Calcium (8.5-10.1) mg/dL Total Bilirubin (0.2-1.0) mg/dL AST (15-37) IU/L ALT (14-63) IU/L Alkaline Phosphatase (46-116) U/L Total Protein (6.4-8.2) g/dL Albumin (3.4-5.0) g/dL Globulin (2.6-4.0) g/dL Albumin/Globulin Ratio (0.9-1.6) Urine Color YELLOW Urine Appearance HAZY Urine pH 7.0 (5.0-8.0) Ur Specific [place] 1.020 (1.001-1.035) Urine Protein TRACE H (NEGATIVE) mg/dL Urine Glucose (UA) NEGATIVE (NEGATIVE) mg/dL Urine Ketones NEGATIVE (NEGATIVE) mg/dL Urine Occult Blood LARGE H (NEGATIVE) Urine Nitrite NEGATIVE (NEGATIVE) Urine Bilirubin NEGATIVE (NEGATIVE) Urine Urobilinogen 0.2 (<2.0) EU/dL Ur Leukocyte Esterase MODERATE H (NEGATIVE) Urine RBC 0-3 (0-2/HPF) Urine WBC 1-5 (0-5/HPF) Ur Epithelial Cells RARE (NONE-FEW) Urine Bacteria FEW (NEGATIVE) SARS-CoV-2 RNA ([facility]) NEGATIVE (NEGATIVE) 12/29/20 12/29/20 Range/Units 06:00 06:00 WBC 8.77 (4.0-11.0) K/uL RBC 3.18 L (4.30-5.90) M/uL Hgb 9.8 L (12.0-16.0) g/dL Hct 29.9 L (36.0-46.0) % MCV 94.0 (80.0-98.0) fL MCH 30.8 (27.0-32.0) pg MCHC 32.8 (31.0-37.0) g/dL RDW Std Deviation 47.3 (28.0-62.0) fl RDW Coeff of Patricia 14 (11.0-15.0) % Plt Count 416 H (150-400) K/uL MPV 9.10 (7.40-12.00) fL Neut % (Auto) 63.3 (48.0-80.0) % Lymph % (Auto) 25.0 (16.0-40.0) % [place] % (Auto) 6.7 (0.0-15.0) % Eos % (Auto) 4.8 (0.0-7.0) % Baso % (Auto) 0.2 (0.0-1.5) % Neut # (Auto) 5.6 (1.4-5.7) K/uL Lymph # (Auto) 2.2 (0.6-2.4) K/uL [place]ucks # (Auto) 0.6 (0.0-0.8) K/uL Eos # (Auto) 0.4 (0.0-0.7) K/uL Baso # (Auto) 0.0 (0.0-0.1) K/uL Nucleated RBC % 0.0 /100WBC Nucleated RBCs # 0 K/uL INR APTT (18.6-31.3) SEC Sodium (136-145) mmol/L Potassium (3.5-5.1) mmol/L Chloride (98-107) mmol/L Carbon Dioxide (21.0-32.0) mmol/L BUN (7.0-18.0) mg/dL Creatinine (0.6-1.0) mg/dL Est Cr Clr Drug Dosing mL/min Estimated GFR (MDRD) ml/min Glucose (74-106) mg/dL Lactic Acid 0.5 (0.4-2.0) mmol/L Calcium (8.5-10.1) mg/dL Total Bilirubin (0.2-1.0) mg/dL AST (15-37) IU/L ALT (14-63) IU/L Alkaline Phosphatase (46-116) U/L Total Protein (6.4-8.2) g/dL Albumin (3.4-5.0) g/dL Globulin (2.6-4.0) g/dL Albumin/Globulin Ratio (0.9-1.6) Urine Color Urine Appearance Urine pH (5.0-8.0) Ur Specific [place] (1.001-1.035) Urine Protein (NEGATIVE) mg/dL Urine Glucose (UA) (NEGATIVE) mg/dL Urine Ketones (NEGATIVE) mg/dL Urine Occult Blood (NEGATIVE) Urine Nitrite (NEGATIVE) Urine Bilirubin (NEGATIVE) Urine Urobilinogen (<2.0) EU/dL Ur Leukocyte Esterase (NEGATIVE) Urine RBC (0-2/HPF) Urine WBC (0-5/HPF) Ur Epithelial Cells (NONE-FEW) Urine Bacteria (NEGATIVE) SARS-CoV-2 RNA ([facility]) (NEGATIVE) Result Diagrams: 12/29/20 06:00 12/28/20 15:54 Sepsis Event Note - Evaluation Sepsis Screening Result: No Definite Risk - Focused Exam Vital Signs: Vital Signs Temp Pulse Resp BP Pulse Ox 12/29/20 08:00 35.8 C L 94 16 124/91 H 99 12/29/20 04:15 36.2 C 81 16 117/68 95 12/28/20 23:55 36.0 C L 90 22 H 134/85 97 - Problem List Review Problem List Initiated/Reviewed/Updated: Yes - My Orders Last 24 Hours: My Active Orders 12/28/20 21:12 Morphine 4 - 6 mg IVPUSH Q4H PRN 12/28/20 21:14 Bedrest Bathroom Privileges [RC] ASDIRECTED 12/28/20 21:30 Nicotine [Habitrol] 14 mg TRDERM DAILY 12/29/20 02:30 metroNIDAZOLE/Normal Saline [Flagyl in NS 500 MG/100 ML] 500 mg Premix Bag 1 bag IV Q8H 12/29/20 Breakfast Regular Diet [DIET] 12/29/20 07:39 Acetaminophen [Tylenol Extra Strength] 1,000 mg PO Q4H PRN 12/29/20 18:30 cefTRIAXone [Rocephin in Dextrose,Iso-Osm 1 GM/50 ML] 1 gm Premix Bag 1 bag IV Q24H - Assessment Assessment:: aaaaaaaaabdomin soft ,minimal tendrnace. passing danny - Plan Plan:: Abdominal pain mild tendernance. keep in the hospital for anotherday of iv antibiotic.
[2020-12-29] MEDS ORDERED: cefTRIAXone 1 GM in Premix Bag 1 BAG IV SCH (18:30)
[2020-12-29] MEDS ORDERED: Metoprolol Succinate 25 MG Tab.ER PO SCH (21:00)
[2020-12-29] MEDS ORDERED: Rosuvastatin 10 MG Tab PO SCH (21:00)
[2020-12-29] MEDS ORDERED: Amitriptyline 10 MG Tab PO SCH (21:00)
[2020-12-29] MEDS ORDERED: Lisinopril 10 MG Tab PO SCH (21:00)
[2020-12-30] MEDS: metroNIDAZOLE/Normal Saline 500 MG in Premix Bag 1 BAG IV SCH (02:18)
[2020-12-30] MEDS: Nicotine 14 MG/24 Hr Patch TRDERM SCH (09:10)
[2020-12-30 09:20] VITALS: BP 129/85; PULSE 77
--- NOTE | 2020-12-30 09:23 | PCM.PN ---
- General Info Date of Service: 12/30/20 Functional Status: Reports: Pain Controlled - Review of Systems General: Reports: No Symptoms HEENT: Reports: No Symptoms Pulmonary: Reports: No Symptoms Cardiovascular: Reports: No Symptoms Gastrointestinal: Reports: No Symptoms Genitourinary: Reports: No Symptoms Musculoskeletal: Reports: No Symptoms Skin: Reports: No Symptoms Neurological: Reports: No Symptoms Psychiatric: Reports: No Symptoms - Patient Data Vitals - Most Recent: Last Vital Signs Temp 36.7 C 12/30/20 04:00 Pulse 82 12/30/20 04:00 Resp 19 12/30/20 04:00 BP 118/60 12/30/20 04:00 Pulse Ox 98 12/30/20 04:00 Weight - Most Recent: 68.4 kg I&O - Last 24 Hours: Intake & Output 12/29/20 12/30/20 12/30/20 22:59 06:59 14:59 Intake Total 520 680 Output Total 700 820 Balance -180 -140 Richard Results Last 24 Hours: Microbiology 12/28/20 18:43 Aerobic Blood Culture - Preliminary Blood - Venous - Lab Draw NO GROWTH AFTER 1 DAY Anaerobic Blood Culture - Preliminary NO GROWTH AFTER 1 DAY 12/28/20 18:39 Aerobic Blood Culture - Preliminary Blood - Venous NO GROWTH AFTER 1 DAY Anaerobic Blood Culture - Preliminary NO GROWTH AFTER 1 DAY Med Orders - Current: Current Medications Acetaminophen (Acetaminophen 500 Mg Tab) 1,000 mg PO Q4H PRN PRN Reason: Headache Last Admin: 12/29/20 07:57 Dose: 1,000 mg Documented by: Amitriptyline HCl (Amitriptyline 10 Mg Tab) 30 mg PO BEDTIME [facility] Last Admin: 12/29/20 21:14 Dose: 30 mg Documented by: Metronidazole 500 mg/ Premix 100 mls @ 100 mls/hr IV Q8H [facility] Last Admin: 12/30/20 02:18 Dose: 100 mls/hr Documented by: Ceftriaxone Sodium/Dextrose 1 (gm/ Premix) 50 mls @ 100 mls/hr IV Q24H [facility] Last Admin: 12/29/20 17:48 Dose: 100 mls/hr Documented by: Lisinopril (Lisinopril 10 Mg Tab) 10 mg PO BEDTIME [facility] Last Admin: 12/29/20 21:14 Dose: 10 mg Documented by: Metoprolol Succinate (Metoprolol Succinate 25 Mg Tab.Er) 25 mg PO BEDTIME [facility] Last Admin: 12/29/20 21:13 Dose: 25 mg Documented by: Morphine Sulfate (Morphine 4 Mg/Ml Syringe) 4 - 6 mg IVPUSH Q4H PRN PRN Reason: Pain Last Admin: 12/28/20 22:38 Dose: 4 mg Documented by: Nicotine (Nicotine 14 Mg/24 Hr Patch) 14 mg TRDERM DAILY [facility] Last Admin: 12/30/20 09:10 Dose: Not Given Documented by: Rosuvastatin Calcium (Rosuvastatin 10 Mg Tab) 5 mg PO BEDTIME [facility] Last Admin: 12/29/20 21:14 Dose: 5 mg Documented by: Discontinued Medications Metronidazole 500 mg/ Premix 100 mls @ 100 mls/hr IV ONETIME ONE Stop: 12/28/20 19:27 Last Admin: 12/28/20 18:52 Dose: 100 mls/hr Documented by: Ceftriaxone Sodium/Dextrose 2 (gm/ Premix) 50 mls @ 100 mls/hr IV ONETIME ONE Stop: 12/28/20 18:58 Last Admin: 12/28/20 18:43 Dose: 100 mls/hr Documented by: Lactated Ringer's (Ringers, Lactated) 1,000 mls @ 250 mls/hr IV ONETIME ONE Stop: 12/29/20 01:14 Last Admin: 12/28/20 22:15 Dose: 250 mls/hr Documented by: Iopamidol (Iopamidol 755 Mg/Ml 500 Ml Multipack Bottle) 100 ml IVPUSH ONETIME STA Stop: 12/28/20 17:14 Last Admin: 12/28/20 17:13 Dose: 100 ml Documented by: - Exam General: Alert, Oriented HEENT: Pupils Equal, Pupils Reactive, EOMI, Mucous Membr. Moist/[place] Neck: Supple Lungs: Clear to Auscultation, Normal Respiratory Effort Cardiovascular: Regular Rate, Regular Rhythm GI/Abdominal Exam: Normal Bowel Sounds, Soft, Non-Tender, No Organomegaly, No Distention, No Abnormal Bruit, No Mass, Pelvis Stable (Female) Exam: Normal External Exam, Normal Speculum Exam, Normal Bimanual Exam Back Exam: Normal Inspection, Full Range of Motion Extremities: Normal Inspection, Normal Range of Motion, Non-Tender, No Pedal Edema, Normal Capillary Refill Skin: Warm, Dry, Intact Wound/Incisions: Healing Well Neurological: No New Focal Deficit Psy/Mental Status: Alert, Normal Affect, Normal Mood - Patient Data Result Diagrams: 12/29/20 06:00 12/28/20 15:54 Richard Results Last 24 hrs: Microbiology 12/28/20 18:43 Aerobic Blood Culture - Preliminary Blood - Venous - Lab Draw NO GROWTH AFTER 1 DAY Anaerobic Blood Culture - Preliminary NO GROWTH AFTER 1 DAY 12/28/20 18:39 Aerobic Blood Culture - Preliminary Blood - Venous NO GROWTH AFTER 1 DAY Anaerobic Blood Culture - Preliminary NO GROWTH AFTER 1 DAY Sepsis Event Note - Evaluation Sepsis Screening Result: No Definite Risk - Focused Exam Vital Signs: Vital Signs Temp Pulse Resp BP Pulse Ox 12/30/20 04:00 36.7 C 82 19 118/60 98 12/30/20 00:00 36.8 C 84 18 120/58 L 99 - Problem List Review Problem List Initiated/Reviewed/Updated: Yes - My Orders Last 24 Hours: My Active Orders 12/29/20 18:30 [email or web address] [Rocephin in Dextrose,Iso-Osm 1 GM/50 ML] 1 gm Premix Bag 1 bag IV Q24H 12/29/20 21:00 Amitriptyline [Elavil] 30 mg PO BEDTIME Metoprolol Succinate [Toprol XL] 25 mg PO BEDTIME Rosuvastatin [Crestor] 5 mg PO BEDTIME lisinopriL [Prinivil] 10 mg PO BEDTIME - Assessment Assessment:: aaaaaaaaabdomin soft ,minimal tendrnace. passing danny - Plan Plan:: Abdominal pain mild tendernance. keep in the hospital for anotherday of iv antibiotic. Clinical condition is improved tremendously patient is passing gas and is soft and nontender count is normal he is afebrile and sending her home with the p.o. antibiotic Flagyl 500 mg p.o. every 8 H the patient have an appointment to see me in the office next week
--- NOTE | 2020-12-30 09:25 | PCM.DCSUM1 ---
Discharge Summary - Hospital Course Diagnosis: Stroke: No - Discharge Data Discharge Date: 12/30/20 Discharge Disposition: Home, Self-Care 01 Condition: Stable - Referral to Home Health Primary Care Physician: Dale Gamez MD - Patient Instructions Diet: Usual Diet as Tolerated Activity: As Tolerated Driving: Do Not Drive Showering/Bathing: May Shower Notify Provider of: Fever, Increased Pain, Nausea and/or Vomiting - Discharge Plan *PRESCRIPTION DRUG MONITORING PROGRAM REVIEWED*: No *COPY OF PRESCRIPTION DRUG MONITORING REPORT IN PATIENT FLIP: No Home Medications: Home Meds Amitriptyline [Elavil] 30 mg PO BEDTIME 04/26/17 [History] lisinopriL [Lisinopril] 10 mg PO BEDTIME 11/14/19 [History] Metoprolol Succinate [Toprol XL] 25 mg PO BEDTIME 03/26/20 [History] Ibuprofen [Motrin] 400 mg PO ASDIRECTED PRN 12/04/20 [History] Rosuvastatin Calcium 5 mg PO BEDTIME 12/04/20 [History] Forms: ED Department Discharge Referrals: Dale Gamez MD [Primary Care Provider] - - Discharge Summary/Plan Comment DC Time >30 min.: Yes Total # of Minutes for Discharge Time: 30 - General Info Date of Service: 12/30/20 Functional Status: Reports: Pain Controlled - Review of Systems General: Reports: No Symptoms HEENT: Reports: No Symptoms Pulmonary: Reports: No Symptoms Cardiovascular: Reports: No Symptoms Gastrointestinal: Reports: No Symptoms Genitourinary: Reports: No Symptoms Musculoskeletal: Reports: No Symptoms Skin: Reports: No Symptoms Neurological: Reports: No Symptoms Psychiatric: Reports: No Symptoms - Patient Data Vitals - Most Recent: Last Vital Signs Temp 36.2 C 12/30/20 08:00 Pulse 77 12/30/20 08:00 Resp 16 12/30/20 08:00 BP 129/85 12/30/20 08:00 Pulse Ox 98 12/30/20 08:00 Weight - Most Recent: 68.4 kg I&O - Last 24 hours: Intake & Output 12/29/20 12/30/20 12/30/20 22:59 06:59 14:59 Intake Total 520 680 Output Total 700 820 Balance -180 -140 [facility] Results - Last 24 hrs: Microbiology 12/28/20 18:43 Aerobic Blood Culture - Preliminary Blood - Venous - Lab Draw NO GROWTH AFTER 1 DAY Anaerobic Blood Culture - Preliminary NO GROWTH AFTER 1 DAY 12/28/20 18:39 Aerobic Blood Culture - Preliminary Blood - Venous NO GROWTH AFTER 1 DAY Anaerobic Blood Culture - Preliminary NO GROWTH AFTER 1 DAY Med Orders - Current: Current Medications Acetaminophen (Acetaminophen 500 Mg Tab) 1,000 mg PO Q4H PRN PRN Reason: Headache Last Admin: 12/29/20 07:57 Dose: 1,000 mg Documented by: Amitriptyline HCl (Amitriptyline 10 Mg Tab) 30 mg PO BEDTIME [facility] Last Admin: 12/29/20 21:14 Dose: 30 mg Documented by: Metronidazole 500 mg/ Premix 100 mls @ 100 mls/hr IV Q8H [facility] Last Admin: 12/30/20 02:18 Dose: 100 mls/hr Documented by: Ceftriaxone Sodium/Dextrose 1 (gm/ Premix) 50 mls @ 100 mls/hr IV Q24H [facility] Last Admin: 12/29/20 17:48 Dose: 100 mls/hr Documented by: Lisinopril (Lisinopril 10 Mg Tab) 10 mg PO BEDTIME [facility] Last Admin: 12/29/20 21:14 Dose: 10 mg Documented by: Metoprolol Succinate (Metoprolol Succinate 25 Mg Tab.Er) 25 mg PO BEDTIME [facility] Last Admin: 12/29/20 21:13 Dose: 25 mg Documented by: Morphine Sulfate (Morphine 4 Mg/Ml Syringe) 4 - 6 mg IVPUSH Q4H PRN PRN Reason: Pain Last Admin: 12/28/20 22:38 Dose: 4 mg Documented by: Nicotine (Nicotine 14 Mg/24 Hr Patch) 14 mg TRDERM DAILY [facility] Last Admin: 12/30/20 09:10 Dose: Not Given Documented by: Rosuvastatin Calcium (Rosuvastatin 10 Mg Tab) 5 mg PO BEDTIME [facility] Last Admin: 12/29/20 21:14 Dose: 5 mg Documented by: Discontinued Medications Metronidazole 500 mg/ Premix 100 mls @ 100 mls/hr IV ONETIME ONE Stop: 12/28/20 19:27 Last Admin: 12/28/20 18:52 Dose: 100 mls/hr Documented by: Ceftriaxone Sodium/Dextrose 2 (gm/ Premix) 50 mls @ 100 mls/hr IV ONETIME ONE Stop: 12/28/20 18:58 Last Admin: 12/28/20 18:43 Dose: 100 mls/hr Documented by: Lactated Ringer's (Ringers, Lactated) 1,000 mls @ 250 mls/hr IV ONETIME ONE Stop: 12/29/20 01:14 Last Admin: 12/28/20 22:15 Dose: 250 mls/hr Documented by: Iopamidol (Iopamidol 755 Mg/Ml 500 Ml Multipack Bottle) 100 ml IVPUSH ONETIME STA Stop: 12/28/20 17:14 Last Admin: 12/28/20 17:13 Dose: 100 ml Documented by: - Exam General: Reports: Alert, Oriented HEENT: Reports: Pupils Equal, Pupils Reactive, EOMI, Mucous Membr. Moist/[place] Neck: Reports: Supple Lungs: Reports: Clear to Auscultation, Normal Respiratory Effort Cardiovascular: Reports: Regular Rate, Regular Rhythm GI/Abdominal Exam: Normal Bowel Sounds, Soft, Non-Tender, No Organomegaly, No Distention, No Abnormal Bruit, No Mass, Pelvis Stable (Female) Exam: Normal External Exam, Normal Speculum Exam, Normal Bimanual Exam Rectal (Female) Exam: Normal Exam, Normal Rectal Tone Back Exam: Reports: Normal Inspection, Full Range of Motion Extremities: Normal Inspection, Normal Range of Motion, Non-Tender, No Pedal Edema, Normal Capillary Refill Skin: Reports: Warm, Dry, Intact Wound/Incisions: Reports: Healing Well Neurological: Reports: No New Focal Deficit Psy/Mental Status: Reports: Alert, Normal Affect, Normal Mood
[2020-12-30] MEDS: Acetaminophen 500 MG Tab PO PRN (09:48)
== END 2020-12-30 09:55 | disposition home or self-care (01) ==
LOC: MW.ED 15:38 → MW.MS 18:31
PROVIDERS: ADMIT Obstetrics & Gynecology; ATTEND Obstetrics & Gynecology
DX: R10.9 Unspecified abdominal pain (principal); R10.819 Abdominal tenderness, unspecified site; F17.210 Nicotine dependence, cigarettes, uncomplicated; E78.00 Pure hypercholesterolemia, unspecified; I10 Essential (primary) hypertension; Z98.890 Other specified postprocedural states; Z88.8 Allergy status to other drugs, medicaments and biological substances; Z79.899 Other long term (current) drug therapy; Z20.822 Contact with and (suspected) exposure to COVID-19
CPT/HCPCS: 36415; 74177; 74177-26; 80053; 81001; 83605; 85025; 85610; 85730; 87040; 96365; 96367; 99285-25; A9270-GY; J0696; J2270; J3490; J7120; Q9967; U0002